=== PATIENT | female | born 1975 | race Caucasian/White ===

== ENCOUNTER 2016-08-21 19:38 | Emergency (ER) | payer MEDICAID ==
--- NOTE | ~2016-08-21 | ER ---
PATIENT'S NAME: [facility] AGE: 40 Y [address] ROOM: [place] [address] LOCATION: ED ADMIT DATE: 08/21/2016 ER/Outpatient Report DISCHARGE DATE: 08/21/2016 FAMILY PHYSICIAN: Stefany Chaidez APRN ATTENDING PHYSICIAN: Mario Francis Admission date and time are documented on the medical record. I saw the patient at 2000 hours. CHIEF COMPLAINT: Frontal headache, slurred speech, heartburn, blurred vision, chest tightness, and upper abdominal pain. HISTORY OF PRESENT ILLNESS: This patient is a 40-year-old female who comes in with multiple complaints. She has kind of a frontal headache and feels fuzzy. She has headaches off and on. She had a CT scan yesterday, which was negative. Denies any lateralizing weakness, numbness, tingling, or loss of function. No sudden onset. It is not the worst headache that she has had in the world. No other neuro changes other than the slurred speech and her speech was normal here in the emergency department. The patient has some chest tightness. She had cardiovascular evaluation yesterday that was also normal. She has no known history of hypertension, coronary artery disease, or valvular heart disease. The patient does have some shortness of breath off and on, but this is chronic. Does have COPD and asthma and is a smoker. Does have epigastric pain. She has had her gallbladder out. No history of peptic ulcer disease, pancreatitis, and is not a drinker. No history of bowel problems. No back pain. No radiation of the epigastric pain through to her back. No shoulder pain, jaw pain, or neck pain. No eyes, ears, nose, throat pain, or spine pain. Does have some fluid retention with some swelling in her extremities. No pitting edema or cyanosis. No history of joint muscle diseases. No history of skin diseases. Does have anxiety, depression, extremely overweight about 350 pounds, poor diet, drinks a lot of pop, and smokes a lot of cigarettes. No history of stroke, TIA, or seizure disorder. Does have anxiety, depression, but no psychosis. No history of endocrine problems with diabetes or thyroid disease. HOME MEDICATIONS: None. ALLERGIES: PENICILLIN, SULFA. SOCIAL HISTORY: The patient smokes a quarter to half a pack of cigarettes a day. Nondrinker. No other illicit drug use. PATIENT'S NAME: [facility] AGE: 40 Y [address] ROOM: [place], [place] [address] LOCATION: [facility] ADMIT DATE: 08/21/2016 ER/Outpatient Report DISCHARGE DATE: 08/21/2016 FAMILY PHYSICIAN: Stefany Chaidez APRN ATTENDING PHYSICIAN: Mario Francis SIGNIFICANT PAST MEDICAL HISTORY: Tobacco abuse, COPD, asthma, and headaches. OPERATIONS: Carpal tunnel release, x3, cholecystectomy, and appendectomy. REVIEW OF SYSTEMS: All systems reviewed by me are negative with the exception of those discussed in the history of present illness. PHYSICAL EXAMINATION: HEAD: Normocephalic. No abrasion, contusion, laceration, or swelling of scalp or face. EYES: Extraocular muscles intact. PERRL. Sclerae and conjunctivae clear, nonicteric. EARS: Clear TMs bilaterally. NOSE: Clear. THROAT: Clear. Mucous membranes moist. Teeth, jaw intact. NECK: No nuchal rigidity. No thyromegaly or cervical adenopathy. No tenderness. SPINE: Negative. LUNGS: Clear. Good airflow. No rales, rhonchi, or wheezes. HEART: Regular. Pulses are palpable. No chest wall or ribcage pain to palpation. No deformity. ABDOMEN: Large obese abdomen. Soft. Some tenderness in epigastric. No true guarding or rigidity. No rebound tenderness. Active bowel tones. No organomegaly or abnormal mass palpable. No CVA tenderness. EXTREMITIES: Does have some possible edema, but nonpitting. No cyanosis, no deformity. NEURO: Cranial nerves intact. No lateralized sign. The patient is awake, cooperative. Motor and sensory intact. SKIN: Clear. No skin eruptions or rash. VASCULAR: Intact. LABORATORY DATA: White count is 12,200, 59 segs, 32 lymphs, 7 monos, 2 eos, 1 baso, hemoglobin is 11.6 with hematocrit 37.2, and platelet count is 338,000. Sed rate is normal at 16. PTT was 28, pro-time is 10.1 with INR is 0.96. Urine drug screen was negative. Urinalysis showed 2-5 whites, 0-2 red, 2-5 epithelial cells, 0-2 renal epithelial cells, moderate bacteria, 1+ mucus per high- powered field, negative nitrites. Culture pending. Two blood cultures drawn, results pending. CMS was normal except for a slightly low potassium at 3.6, slightly elevated chloride 111, slightly low anion gap 8.6, slightly elevated glucose 117, low calcium of 8.0, magnesium was 1.9, amylase and lipase were PATIENT'S NAME: [facility] AGE: 40 Y [address] ROOM: [place], [place] [address] LOCATION: [facility] ADMIT DATE: 08/21/2016 ER/Outpatient Report DISCHARGE DATE: 08/21/2016 FAMILY PHYSICIAN: Stefany Chaidez APRN ATTENDING PHYSICIAN: Mario Francis normal. CPK was 76. [id number] cardiac enzymes were normal. CRP was 0.93. Thyroid tests were normal. Pro-BNP was 106. D-dimer was normal at 0.24. Medical blood alcohol was normal less than 0.01. Acetaminophen and salicylate serum levels were normal. Arterial blood gases on room air showed a pH of 7.43, pCO2 of 39, pO2 of 78 with an O2 sat of 96%. Lactate was 1.3. Procalcitonin was less than 0.05. EKG showed sinus rhythm. No acute ST- elevation, ischemic change, or arrhythmia. Chest x-ray showed no acute infiltrate or changes. We will review x-ray with the radiologist. IMPRESSION: 1. Chest pain, etiology uncertain, no evidence of cardiac etiology. She does have a history of chronic obstructive pulmonary disease and asthma, maybe has mild exacerbation. 2. Epigastric abdominal pain, etiology uncertain. No evidence of pancreatitis. There was no change in her liver enzymes. She does not have a surgical abdomen. There is no true guarding or rigidity. She has good bowel tones. No palpable masses. She does not have any history of pancreatitis, gastritis, peptic ulcer disease, or colitis. Again, this could be reflux and gastritis, but may need to have endoscopy to fully delineate this. 3. Exogenous obesity. 4. Tobacco abuse. 5. Heavy intake of sodas and poor diet. PLAN: The patient was dismissed home. Observation. Activity as tolerated. I did discuss all my findings and recommendations with the patient. Continue present home care, stop smoking, lose weight, she needs to lose 150 pounds. Stop sodas and sweets. Better balanced diet. Regular exercise. I believe if abdominal pain continues she may need to have upper endoscopy. She may need to have counseling for anxiety, depression. Follow up with personal physician as needed. MD NELIDA MACIAS/modl /[id number] d: 08/22/16130 t: 08/22/16 0247, OUTPATIENT REPORT
[2016-08-21 20:41] LABS: BICARBONATE 25.9 mmol/L (18.0-23.0); LACTATE 1.3 mEq/L (0.50-1.60); PCO2 39 mmHg (35-45); PO2 78 mmHg (80-90)
[2016-08-21 21:07] LABS: BASOPHIL # 0.1 K/uL (0.0-0.2); BASOPHIL % 0.5 %; EOSINOPHIL # 0.3 K/uL (0.0-0.5); EOSINOPHIL % 2.2 %; HEMATOCRIT 37.2 % (33.0-46.0); HEMOGLOBIN 11.6 g/dL (11.0-15.0); IMMATURE GRANULOCYTE # 0.1 K/uL (0.0-0.3); IMMATURE GRANULOCYTE % 0.4 %; LYMPHOCYTE # 3.8 K/uL (0.8-4.0); LYMPHOCYTE % 31.5 %; MCH 25.5 pg (27.0-34.0); MCHC 31.2 gm/dL (32.0-36.5); MCV 81.8 fl (83.0-98.0); MONOCYTE # 0.8 K/uL (0.0-1.0); MONOCYTE % 6.8 %; MPV 10.8 fl (9.4-12.4); NEUTROPHIL # (ANC) 7.1 K/uL (1.8-7.8); NEUTROPHIL % 58.6 %; NRBC % 0 /100WBC (0-0.00); PLATELET COUNT 338 K/uL (150-450); RBC 4.55 M/uL (3.50-5.50); RDW-CV 14.6 % (11.9-14.6); WBC 12.2 K/uL (4.0-11.0)
[2016-08-21 21:19] LABS: BILIRUBIN URINE NEGATIVE (NEGATIVE); BLOOD URINE 10 /UL (NEGATIVE); COLOR URINE YELLOW (YELLOW); GLUCOSE URINE NEGATIVE (NEGATIVE); KETONE URINE 5 mg/dL (NEGATIVE); LEUKOCYTES URINE 25 /UL (NEGATIVE); NITRITE URINE NEGATIVE (NEGATIVE); PROTEIN URINE NEGATIVE (NEGATIVE); TURBIDITY URINE CLEAR (CLEAR); UROBILINOGEN URINE 1 mg/dL (NORMAL)
[2016-08-21 21:20] LABS: INR - (THERAPEUTIC) 0.96 (0.92-1.07); PROTIME 10.1 SECONDS (9.8-11.4); PTT 28 SECONDS (25-32)
[2016-08-21 21:25] LABS: ALBUMIN 3.4 gm/dL (3.5-5.0); ALK PHOS 82 IU/L (33-138); ALT 26 IU/L (12-78); ANION GAP 8.6 (10.0-19.0); AST 13 IU/L (10-40); BLOOD UREA NITROGEN 11 mg/dL (6-24); CHLORIDE 111 mMol/L (96-110); CO2 24 mMol/L (22-32); CPK 76 IU/L (21-215); ESTIMATED GFR (MDRD EQUATION) > 60; MAGNESIUM 1.9 mg/dL (1.8-2.6); POTASSIUM 3.6 mMol/L (3.7-5.1); SODIUM 140 mMol/L (135-145); TOTAL BILIRUBIN 0.2 mg/dL (0.0-1.5); TOTAL PROTEIN 6.7 g/dL (6.0-8.4)
[2016-08-21 21:26] LABS: RBC URINE 0-2 #/HPF (NEGATIVE)
[2016-08-21 21:27] LABS: BACTERIA URINE MODERATE (NEGATIVE); MUCUS URINE 1+ (NEGATIVE); RENAL EPITH URINE 0-2 #/HPF (NEGATIVE)
[2016-08-21 21:40] LABS: OPIATES NEGATIVE (NEGATIVE)
[2016-08-21 21:43] LABS: AMPHETAMINE NEGATIVE (NEGATIVE); BARBITURATE NEGATIVE (NEGATIVE); COCAINE NEGATIVE (NEGATIVE)
== END 2016-08-21 22:35 | disposition disaster alternative care site (69) ==
LOC: GMED 19:38
PROVIDERS: Emergency Medicine
DX: R10.13 Epigastric pain (principal); R07.89 Other chest pain; E66.9 Obesity, unspecified; J44.9 Chronic obstructive pulmonary disease, unspecified; J45.909 Unspecified asthma, uncomplicated; F17.210 Nicotine dependence, cigarettes, uncomplicated; Z90.49 Acquired absence of other specified parts of digestive tract; Z98.890 Other specified postprocedural states; Z88.0 Allergy status to penicillin; Z88.2 Allergy status to sulfonamides
CPT/HCPCS: G0480